=== PATIENT | male | born 1960 | race Caucasian/White ===

== ENCOUNTER 2019-01-04 09:38 | Inpatient (IN) | payer MEDICARE, MEDICAID ==
[~2019-01-04] VITALS: Ht 185.4 cm; Wt 213.6 kg
[2019-01-04] MEDS ORDERED: IV NORMAL SALINE 500ML BAG 500 ML IV ONE (10:00)
[2019-01-04] MEDS ORDERED: DIGOXIN IV 500 MCG/2 ML AMPUL. IV ONE (10:00)
--- NOTE | 2019-01-04 10:07 | EKG ---
[facility] [address] [place] [address] Test Date: 2019-01-04 Test Time: 09:48:56 Pat Name: USHA MOSS Department: Room: Gender: Pharmacist Hospital: : 1960 Requested By: TATYANA MEHTA Order Number: [id number] Reading MD: Measurements Intervals [place] Rate: 113 P: SC: QRS: 18 QRSD: 82 T: -4 QT: 322 QTc: 447 Interpretive Statements IRREGULAR RHYTHM, NO P-WAVE FOUND NO SPECIFIC ECG ABNORMALITIES RI6.01 No previous ECG available for comparison
[2019-01-04 10:18] LABS: BASO # 0.1 x10^3/uL (0.0-0.2); BASO % 1 % (0-3); EOS # 0.2 x10^3/uL (0.0-0.7); EOS % 2 % (0-3); HEMATOCRIT 49.8 % (39.0-53.0); HEMOGLOBIN 16.7 g/dL (13.0-17.5); LYMPH % 11 % (24-48); MEAN CORPUSCULAR HEMOGLOBIN 31 pg (25-35); MEAN CORPUSCULAR HGB CONC 34 g/dL (31-37); MEAN CORPUSCULAR VOLUME 94 fL (79-100); MONO # 0.9 x10^3/uL (0.0-1.1); MONO % 10 % (0-9); NEUT # 6.7 x10^3/uL (1.8-7.7); NEUT % 76 % (31-73); PLATELET COUNT 247 x10^3/uL (140-400); RED CELL DISTRIBUTION WIDTH 14.3 % (11.5-14.5); WHITE BLOOD COUNT 8.9 x10^3/uL (4.0-11.0)
--- NOTE | 2019-01-04 10:31 | RAD ---
Single view of the chest. 01/04/2019 9:57 AM Indication: Shortness of breath, dizziness. Comparison: None available Findings: There is no focal consolidation. There is no pleural effusion or pneumothorax. Borderline cardiomegaly noted. No acute osseous abnormalities are seen. Impression: 1.No evidence of acute cardiopulmonary process. 2. Borderline cardiomegaly Electronically signed by: Gabo Santiago MD (01/04/2019 10:28 AM) [id number]
[2019-01-04 10:36] LABS: CALCIUM 9.3 mg/dL (8.5-10.1); CREATININE 2.2 mg/dL (0.7-1.3); GFR 31.1; POTASSIUM 3.7 mmol/L (3.5-5.1)
[2019-01-04 10:41] LABS: ALBUMIN 3.3 g/dL (3.4-5.0); ALBUMIN/GLOBULIN RATIO 0.8 (1.0-1.7); TOTAL BILIRUBIN 0.7 mg/dL (0.2-1.0); TOTAL PROTEIN 7.4 g/dL (6.4-8.2)
--- NOTE | 2019-01-04 10:49 | PHYS DOC ---
Past Medical History Past Medical History: A-Fib, Hypertension Past Surgical History: Other Additional Past Surgical Histo: BACK Alcohol Use: None Drug Use: Marijuana Adult General Chief Complaint Chief Complaint: DIZZY/LIGHT HEADED HPI HPI 58-year-old male presents to ER via POV for complaints of dizziness and shortness of air. Patient states he was seen at Dr. Lacey's office and was told he was in A. fib so he was sent to the ER for further evaluation. Patient states he drove from [place] on Thursday and yesterday started having intermittent dizziness and increased shortness of air. Patient denies any chest pain or palpitations. Pt states he has been off of his flecainide since September. Review of Systems Review of Systems Constitutional: Denies fever or chills [] Eyes: Denies change in visual acuity, redness, or eye pain [] HENT: Denies nasal congestion or sore throat [] Respiratory: Denies cough. Reports SOA Cardiovascular: Denies chest pain or palpitations GI: Denies abdominal pain, nausea, vomiting, bloody stools or diarrhea [] : Denies dysuria or hematuria [] Musculoskeletal: Denies back/neck pain or joint pain [] Integument: Denies rash or skin lesions [] Neurologic: Denies headache, focal weakness or sensory changes. Reports intermittent dizziness Endocrine: Denies polyuria or polydipsia [] All other systems were reviewed and found to be within normal limits, except as documented in this note. Current Medications Current Medications Current Medications Medications (Trade) Dose Ordered Sig/Hong Start Time Stop Time Status Last Admin Dose Admin Digoxin (Lanoxin) 500 mcg 1X ONCE 01/04/19 10:00 01/04/19 10:01 DC 01/04/19 10:19 500 MCG Sodium Chloride 500 ml @ 500 mls/hr 1X ONCE 01/04/19 10:00 01/04/19 10:59 DC 01/04/19 10:20 500 MLS/HR Allergies Allergies Allergies Coded Allergies Type Severity Reaction Last Updated Verified No Known Drug Allergies 10/18/14 No Physical Exam Physical Exam Constitutional: Well developed, well nourished, no acute distress, non-toxic appearance. [] HENT: Normocephalic, atraumatic, oropharynx moist, nose normal. [] Eyes: Pupils equal, conjunctiva normal, no discharge. [] Neck: Normal range of motion, no tenderness, supple, no stridor. [] Cardiovascular: Irreg. heart rate regular rhythm, no murmur [] Lungs & Thorax: Bilateral breath sounds clear to auscultation- resp. equal/nonlabored Abdomen: Bowel sounds normal, soft/obese, no tenderness, no masses, no pulsatile masses. [] Skin: Warm, dry, no erythema, no rash. [] Back: No tenderness, no CVA tenderness. [] Extremities: No tenderness, no cyanosis, no clubbing, ROM intact Neurologic: Alert and oriented X 3, normal motor function, normal sensory function, no focal deficits noted. [] Psychologic: Affect normal, judgement normal, mood normal. [] Current Patient Data Vital Signs Vital Signs Date Time Temp Pulse Resp B/P (MAP) Pulse Ox O2 Delivery O2 Flow Rate FiO2 01/04/19 12:27 81 01/04/19 10:19 92/62 01/04/19 09:51 98.2 24 96 Room Air 98.2 Lab Values Laboratory Tests Test 01/04/19 10:10 White Blood Count 8.9 x10^3/uL (4.0-11.0) Red Blood Count 5.30 x10^6/uL (4.30-5.70) Hemoglobin 16.7 g/dL (13.0-17.5) Hematocrit 49.8 % (39.0-53.0) Mean Corpuscular Volume 94 fL (79-100) Mean Corpuscular Hemoglobin 31 pg (25-35) Mean Corpuscular Hemoglobin Concent 34 g/dL (31-37) Red Cell Distribution Width 14.3 % (11.5-14.5) Platelet Count 247 x10^3/uL (140-400) Neutrophils (%) (Auto) 76 % (31-73) H Lymphocytes (%) (Auto) 11 % (24-48) L Monocytes (%) (Auto) 10 % (0-9) H Eosinophils (%) (Auto) 2 % (0-3) Basophils (%) (Auto) 1 % (0-3) Neutrophils # (Auto) 6.7 x10^3/uL (1.8-7.7) Lymphocytes # (Auto) 1.0 x10^3/uL (1.0-4.8) Monocytes # (Auto) 0.9 x10^3/uL (0.0-1.1) Eosinophils # (Auto) 0.2 x10^3/uL (0.0-0.7) Basophils # (Auto) 0.1 x10^3/uL (0.0-0.2) Sodium Level 140 mmol/L (136-145) Potassium Level 3.7 mmol/L (3.5-5.1) Chloride Level 102 mmol/L (98-107) Carbon Dioxide Level 29 mmol/L (21-32) Anion Gap 9 (6-14) Blood Urea Nitrogen 35 mg/dL (8-26) H Creatinine 2.2 mg/dL (0.7-1.3) H Estimated GFR (Cockcroft-Gault) 31.1 BUN/Creatinine Ratio 16 (6-20) Glucose Level 113 mg/dL (70-99) H Calcium Level 9.3 mg/dL (8.5-10.1) Magnesium Level 2.0 mg/dL (1.8-2.4) Total Bilirubin 0.7 mg/dL (0.2-1.0) Aspartate Amino Transferase (AST) 21 U/L (15-37) Alanine Aminotransferase (ALT) 37 U/L (16-63) Alkaline Phosphatase 59 U/L (46-116) Troponin I Quantitative < 0.017 ng/mL (0.000-0.055) Total Protein 7.4 g/dL (6.4-8.2) Albumin 3.3 g/dL (3.4-5.0) L Albumin/Globulin Ratio 0.8 (1.0-1.7) L Laboratory Tests 01/04/19 10:10 Laboratory Tests 01/04/19 10:10 EKG EKG EKG obtained 01/04/19 at [address] Holt Afib Rate 113 No STEMI EKG repeat 01/04/19 at [address] Holt AFib Rate 77 No STEMI Radiology/Procedures Radiology/Procedures PROCEDURE: CHEST AP ONLY Single view of the chest. 01/04/2019 9:57 AM Indication: Shortness of breath, dizziness. Comparison: None available Findings: There is no focal consolidation. There is no pleural effusion or pneumothorax. Borderline cardiomegaly noted. No acute osseous abnormalities are seen. Impression: 1.No evidence of acute cardiopulmonary process. 2. Borderline cardiomegaly Electronically signed by: Gabo Santiago MD (01/04/2019 10:28 AM) [facility] DICTATED and SIGNED BY: GABO SANTIAGO MD DATE: 01/04/19 1028 Course & Med Decision Making Course & Med Decision Making Pertinent Labs and Imaging studies reviewed. (See chart for details) 1248: Spoke with Dr. Tejada, pt's PCP and discussed pt's case/test results and plans for admit. He reports pt's last Cr was 1.5 in September. Pt Cr was 2.2 on today's labs. With elevated renal function and patient could not have CTA of chest and so bilateral venous Dopplers were obtained no findings of DVT. Patient was in A. fib on arrival had a dose of digoxin administered and heart rate improved from 115 to 70s on repeat EKG. No ischemic changes or acute NC and troponin was negative. Patient's chest x-ray with no acute findings. Patient is being admitted to his primary care physician and will consult cardiology with adamant orders. VQ scan had been ordered for further evaluation as patient had complaints of increased shortness of air since yesterday and recent travel from [place]. Patient refused VQ scan- Dr. Tejada aware of this. Pt did receive IV fld bolus while in the ER. He reported following heart rate improving his symptoms also improved. At time of admission and discussion of his test results with him and his he was in no visible distress nontoxic appearance denying any chest pain or shortness of air. Dragon Disclaimer Dragon Disclaimer This electronic medical record was generated, in whole or in part, using a voice recognition dictation system. Departure Departure Impression: Primary Impression: Shortness of breath Additional Impressions: Acute renal injury A-fib Disposition: ADMITTED INPATIENT Admitting Physician: Claudia Tejada Condition: STABLE Referrals: SINAI FRANCO MD (PCP) Problem Qualifiers TATYANA MEHTA APRN Jan 04, 2019 10:49
--- NOTE | 2019-01-04 12:15 | RAD ---
Bilateral lower extremity venous doppler ultrasound History: Shortness of air, recent travel Comparison: None Findings: Multiple grayscale, color, and duplex spectral analysis sonographic images were acquired of the bilateral lower extremity veins to evaluate for the presence of DVT. There is normal phasicity. Normal compression, color-flow, and augmentation is demonstrated from the bilateral common femoral to the popliteal veins. Peroneal veins are poorly visualized on both sides. There are hypoechoic fluid collections in the popliteal fossa bilaterally, on the right up to 5 x 1.4 x 4.5 cm and on the left about 4 x 1.2 x 2.4 cm. Impression: 1. There is no evidence of deep venous thrombosis from the bilateral common femoral to the popliteal veins.. Calf veins are poorly visualized. 2. There are bilateral popliteal fossa fluid collections. Electronically signed by: Bernard Raphael MD (01/04/2019 12:12 PM) [id number]
[2019-01-04] MEDS ORDERED: HYDR-2145 PO (15:29)
[2019-01-04] MEDS ORDERED: METO-239 PO (15:29)
[2019-01-04] MEDS ORDERED: ALLO100T PO (15:29)
[2019-01-04] MEDS ORDERED: LISI-130 PO (15:29)
[2019-01-04] MEDS ORDERED: CHOL10003 PO (15:29)
[2019-01-04] MEDS ORDERED: OXYC1TAB7 PO (15:29)
[2019-01-04] MEDS ORDERED: LEVO125T5 PO (15:29)
[2019-01-04] MEDS ORDERED: OXYC40TA21 PO (15:29)
[2019-01-04] MEDS ORDERED: ASPI325T11 PO (15:29)
[2019-01-04 15:55] VITALS: BP 85/61
[2019-01-04] MEDS ORDERED: oxyCODONE/APAP 5/325 1 TAB TABLET PO PRN (16:00)
[2019-01-04] MEDS ORDERED: ALLOPURINOL 100 MG TABLET. PO SCH ×2 (16:00→18:00)
[2019-01-04] MEDS: LISINOPRIL 20 MG TABLET PO SCH (16:00)
[2019-01-04] MEDS ORDERED: CHOLECALCIFEROL (VITAMIN D3) 1,000 UNIT TABLET PO SCH ×2 (16:00→17:00)
[2019-01-04] MEDS ORDERED: hydroCHLOROthiazide 25 MG TABLET PO SCH ×2 (16:00→17:00)
[2019-01-04] MEDS ORDERED: METOPROLOL SUCC 24HR ER 25 MG TAB.ER.24H. PO SCH ×2 (16:00→17:00)
[2019-01-04] MEDS: ASPIRIN ENTERIC COATED 325 MG TABLET.DR. PO SCH (16:00)
[2019-01-04] MEDS ORDERED: FLECAINIDE ACETATE 50 MG TABLET. PO SCH (17:00)
--- NOTE | 2019-01-04 18:16 | PDOC2 ---
CONSULT Date of Consult Date of Consult DATE: 01/04/19 TIME: 18:10 Reason for Consult Reason for Consult: rapid atrial fibrillation Referring Physician Referring Physician: Dr. Tejada Identification/Chief Complaint Chief Complaint Lightheadedness Source Source: Chart review, Patient History of Present Illness Reason for Visit: The patient is a pleasant 58-year-old male with a history of paroxysmal atrial fibrillation. In the past the patient was seen by the EP service and treated with flecainide. The patient converted to a sinus rhythm. However he disc ontinued flecainide and has resumed atrial fibrillation. He was seen in the office today the heart rate of 1:30 and a systolic pressure of 90. He was transferred to the emergency room for workup. Patient was treated with IV digoxin which decreased his heart rate to approximately 90. His blood pressure now is 110. He is looking and feeling better. Workup is progressing. Past Medical History Cardiovascular: AFIB, HTN Pulmonary: COPD Renal/: Chronic renal insuff Past Surgical History Past Surgical History: Other (previous back surgery) Family History Family History: Cancer, Heart Disease Social History Quit ALCOHOL: rare Current Problem List Problem List Problems Medical Problems: (1) A-fib Status: Acute (2) Acute renal injury Status: Acute (3) Shortness of breath Status: Acute Current Medications Current Medications Current Medications Digoxin (Lanoxin) 500 mcg 1X ONCE IV Last administered on 01/04/19at 10:19; Start 01/04/19 at 10:00; Stop 01/04/19 at 10:01; Status DC Sodium Chloride 500 ml @ 500 mls/hr 1X ONCE IV Last administered on 01/04/19at 10:20; Start 01/04/19 at 10:00; Stop 01/04/19 at 10:59; Status DC Allopurinol (Zyloprim) 100 mg DAILY PO ; Start 01/04/19 at 16:00; Status Cancel Aspirin (Ecotrin) 325 mg DAILY PO ; Start 01/04/19 at 16:00 Vitamin D (Vitamin D3) 1,000 unit DAILY PO ; Start 01/04/19 at 16:00; Status Cancel Hydrochlorothiazide (Hydrodiuril) 25 mg DAILY PO ; Start 01/04/19 at 16:00; Status Cancel Lisinopril (Prinivil) 40 mg DAILY PO ; Start 01/04/19 at 16:00 Metoprolol Succinate (Toprol Xl) 25 mg DAILY PO ; Start 01/04/19 at 16:00; Status Cancel Oxycodone HCl (OxyCONTIN) 40 mg BID PO ; Start 01/04/19 at 21:00 Oxycodone/ Acetaminophen (Percocet 5/325) 1 tab PRN BID PRN PO BREAKTHROUGH PAIN Last administered on 01/04/19at 18:05; Start 01/04/19 at 16:00 Levothyroxine Sodium (Synthroid) 250 mcg DAILY06 PO ; Start 01/05/19 at 06:00 Flecainide Acetate (Tambocor) 100 mg Q12HR PO Last administered on 01/04/19at 18:04; Start 01/04/19 at 17:00 Vitamin D (Vitamin D3) 1,000 unit DAILYWSUP PO Last administered on 01/04/19at 18:03; Start 01/04/19 at 17:00 Allopurinol (Zyloprim) 100 mg DAILY@1800 PO Last administered on 01/04/19at 18:03; Start 01/04/19 at 18:00 Hydrochlorothiazide (Hydrodiuril) 25 mg DAILYBFRSUP PO Last administered on 01/04/19at 18:03; Start 01/04/19 at 17:00 Metoprolol Succinate (Toprol Xl) 25 mg DAILYWSUP PO Last administered on 01/04/19at 18:08; Start 01/04/19 at 17:00 Active Scripts Active Reported Lisinopril 40 Mg Tablet 1 Tab PO DAILY Metoprolol Succinate ( Xl ) (Metoprolol Succinate) 25 Mg Tab.er.24h 1 Tab PO DAILY Hydrochlorothiazide Tablet (Hydrochlorothiazide) 25 Mg Tablet 25 Mg PO DAILY Levothyroxine Sodium 125 Mcg Tablet 2 Tab PO DAILY Allopurinol 100 Mg Tablet 1 Tab PO DAILY Oxycontin (Oxycodone HCl) 40 Mg Tab.er.12h 40 Mg PO BID Oxycodone-Acetaminophen 5-325 (Oxycodone Hcl/Acetaminophen) 1 Each Tablet 1 Each PO BID PRN Vitamin D3 (Cholecalciferol (Vitamin D3)) 1,000 Unit Tablet 1 Tab PO DAILY Aspirin Ec (Aspirin) 325 Mg Tablet.dr 1 Tab PO DAILY Allergies Allergies: Coded Allergies: No Known Drug Allergies (Unverified , 10/18/14) ROS General: YES: Fatigue Respiratory: YES: Shortness of breath, SOB with excertion Cardiovascular: yes Palpitations, yes Lt Headedness Physical Exam General: mild distress HEENT: Atraumatic Lungs: Clear to auscultation Heart: Other (irregularly irregular) Abdomen: Normal bowel sounds Vitals VITALS Vital Signs Date Time Temp Pulse Resp B/P (MAP) Pulse Ox O2 Delivery O2 Flow Rate FiO2 01/04/19 18:08 86 106/70 01/04/19 18:05 18 Room Air 01/04/19 15:55 97.6 97 97.6 Labs Labs Laboratory Tests Test 01/04/19 10:10 White Blood Count 8.9 x10^3/uL (4.0-11.0) Red Blood Count 5.30 x10^6/uL (4.30-5.70) Hemoglobin 16.7 g/dL (13.0-17.5) Hematocrit 49.8 % (39.0-53.0) Mean Corpuscular Volume 94 fL (79-100) Mean Corpuscular Hemoglobin 31 pg (25-35) Mean Corpuscular Hemoglobin Concent 34 g/dL (31-37) Red Cell Distribution Width 14.3 % (11.5-14.5) Platelet Count 247 x10^3/uL (140-400) Neutrophils (%) (Auto) 76 % (31-73) Lymphocytes (%) (Auto) 11 % (24-48) Monocytes (%) (Auto) 10 % (0-9) Eosinophils (%) (Auto) 2 % (0-3) Basophils (%) (Auto) 1 % (0-3) Neutrophils # (Auto) 6.7 x10^3/uL (1.8-7.7) Lymphocytes # (Auto) 1.0 x10^3/uL (1.0-4.8) Monocytes # (Auto) 0.9 x10^3/uL (0.0-1.1) Eosinophils # (Auto) 0.2 x10^3/uL (0.0-0.7) Basophils # (Auto) 0.1 x10^3/uL (0.0-0.2) Sodium Level 140 mmol/L (136-145) Potassium Level 3.7 mmol/L (3.5-5.1) Chloride Level 102 mmol/L (98-107) Carbon Dioxide Level 29 mmol/L (21-32) Anion Gap 9 (6-14) Blood Urea Nitrogen 35 mg/dL (8-26) Creatinine 2.2 mg/dL (0.7-1.3) Estimated GFR (Cockcroft-Gault) 31.1 BUN/Creatinine Ratio 16 (6-20) Glucose Level 113 mg/dL (70-99) Calcium Level 9.3 mg/dL (8.5-10.1) Magnesium Level 2.0 mg/dL (1.8-2.4) Total Bilirubin 0.7 mg/dL (0.2-1.0) Aspartate Amino Transf (AST/SGOT) 21 U/L (15-37) Alanine Aminotransferase (ALT/SGPT) 37 U/L (16-63) Alkaline Phosphatase 59 U/L (46-116) Troponin I Quantitative < 0.017 ng/mL (0.000-0.055) Total Protein 7.4 g/dL (6.4-8.2) Albumin 3.3 g/dL (3.4-5.0) Albumin/Globulin Ratio 0.8 (1.0-1.7) Laboratory Tests Test 01/04/19 10:10 White Blood Count 8.9 x10^3/uL (4.0-11.0) Red Blood Count 5.30 x10^6/uL (4.30-5.70) Hemoglobin 16.7 g/dL (13.0-17.5) Hematocrit 49.8 % (39.0-53.0) Mean Corpuscular Volume 94 fL (79-100) Mean Corpuscular Hemoglobin 31 pg (25-35) Mean Corpuscular Hemoglobin Concent 34 g/dL (31-37) Red Cell Distribution Width 14.3 % (11.5-14.5) Platelet Count 247 x10^3/uL (140-400) Neutrophils (%) (Auto) 76 % (31-73) Lymphocytes (%) (Auto) 11 % (24-48) Monocytes (%) (Auto) 10 % (0-9) Eosinophils (%) (Auto) 2 % (0-3) Basophils (%) (Auto) 1 % (0-3) Neutrophils # (Auto) 6.7 x10^3/uL (1.8-7.7) Lymphocytes # (Auto) 1.0 x10^3/uL (1.0-4.8) Monocytes # (Auto) 0.9 x10^3/uL (0.0-1.1) Eosinophils # (Auto) 0.2 x10^3/uL (0.0-0.7) Basophils # (Auto) 0.1 x10^3/uL (0.0-0.2) Sodium Level 140 mmol/L (136-145) Potassium Level 3.7 mmol/L (3.5-5.1) Chloride Level 102 mmol/L (98-107) Carbon Dioxide Level 29 mmol/L (21-32) Anion Gap 9 (6-14) Blood Urea Nitrogen 35 mg/dL (8-26) Creatinine 2.2 mg/dL (0.7-1.3) Estimated GFR (Cockcroft-Gault) 31.1 BUN/Creatinine Ratio 16 (6-20) Glucose Level 113 mg/dL (70-99) Calcium Level 9.3 mg/dL (8.5-10.1) Magnesium Level 2.0 mg/dL (1.8-2.4) Total Bilirubin 0.7 mg/dL (0.2-1.0) Aspartate Amino Transf (AST/SGOT) 21 U/L (15-37) Alanine Aminotransferase (ALT/SGPT) 37 U/L (16-63) Alkaline Phosphatase 59 U/L (46-116) Troponin I Quantitative < 0.017 ng/mL (0.000-0.055) Total Protein 7.4 g/dL (6.4-8.2) Albumin 3.3 g/dL (3.4-5.0) Albumin/Globulin Ratio 0.8 (1.0-1.7) Assessment/Plan Assessment/Plan 1. Atrial fibrillation with rapid ventricular response rate. Patient was seen in the office with a high rate as well as decreased blood pressure. He was transported to the emergency room. He was treated with IV digoxin which treated for his rapid atrial fibrillation well. At this time will continue workup including baseline lab. We'll recheck an echo. We will start anticoagulation. 2. COPD. Continue baseline pulmonary medications. 3. Chronic kidney disease. Monitoring the patient's creatinine. He may require renal evaluation. 4. Anemia. Continue to monitor. Thank you for allowing us to participate in the care of your patient. HUGH EMMANUEL MD Jan 04, 2019 18:16
[2019-01-04 19:37] VITALS: BP 96/55
[2019-01-04] MEDS: APIXABAN 5 MG TABLET. PO SCH (20:33)
[2019-01-04] MEDS: oxyCODONE ER 40 MG TAB.ER.12H PO SCH (20:33)
[2019-01-04 22:53] VITALS: BP 97/46
[2019-01-05 02:56] VITALS: BP 106/56
[2019-01-05 04:17] LABS: BASO # 0.1 x10^3/uL (0.0-0.2); BASO % 1 % (0-3); EOS # 0.2 x10^3/uL (0.0-0.7); EOS % 4 % (0-3); HEMATOCRIT 46.6 % (39.0-53.0); HEMOGLOBIN 15.5 g/dL (13.0-17.5); LYMPH # 1.4 x10^3/uL (1.0-4.8); LYMPH % 24 % (24-48); MEAN CORPUSCULAR HEMOGLOBIN 32 pg (25-35); MEAN CORPUSCULAR HGB CONC 33 g/dL (31-37); MEAN CORPUSCULAR VOLUME 95 fL (79-100); MONO # 0.7 x10^3/uL (0.0-1.1); MONO % 12 % (0-9); NEUT # 3.6 x10^3/uL (1.8-7.7); NEUT % 60 % (31-73); PLATELET COUNT 215 x10^3/uL (140-400); RED BLOOD COUNT 4.92 x10^6/uL (4.30-5.70); RED CELL DISTRIBUTION WIDTH 14.3 % (11.5-14.5)
[2019-01-05 04:55] LABS: ALBUMIN 2.8 g/dL (3.4-5.0); ALBUMIN/GLOBULIN RATIO 0.8 (1.0-1.7); CALCIUM 8.7 mg/dL (8.5-10.1); CREATININE 1.6 mg/dL (0.7-1.3); GFR 44.9; POTASSIUM 3.7 mmol/L (3.5-5.1); TOTAL BILIRUBIN 0.7 mg/dL (0.2-1.0); TOTAL PROTEIN 6.5 g/dL (6.4-8.2)
[2019-01-05] MEDS ORDERED: LEVOTHYROXINE 125 MCG TABLET PO SCH (06:00)
--- NOTE | 2019-01-05 06:56 | EKG ---
[facility] [address] [place] [address] Test Date: 2019-01-04 Test Time: 12:16:35 Pat Name: USHA MOSS Department: Room: 8 1 Gender: M Personalization Specialist: : 1960 Requested By: Jose CAMPOS Order Number: [id number] Reading MD: Measurements Intervals [place] Rate: 77 P: CT: QRS: 8 QRSD: 82 T: -2 QT: 358 QTc: 407 Interpretive Statements IRREGULAR RHYTHM, NO P-WAVE FOUND QRS(T) CONTOUR ABNORMALITY CONSISTENT WITH ANTEROSEPTAL INFARCT AGE UNDETERMINED ABNORMAL ECG RI6.01 No previous ECG available for comparison
[2019-01-05 07:48] VITALS: BP 106/70
[2019-01-05] MEDS: ASPIRIN ENTERIC COATED 325 MG TABLET.DR. PO SCH (08:59)
[2019-01-05] MEDS: APIXABAN 5 MG TABLET. PO SCH (08:59)
[2019-01-05] MEDS: LISINOPRIL 20 MG TABLET PO SCH (09:00)
[2019-01-05] MEDS: oxyCODONE ER 40 MG TAB.ER.12H PO SCH (09:01)
--- NOTE | 2019-01-05 09:45 | PDOC2 ---
CARDIAC CONSULT DATE OF CONSULT Date of Consult DATE: 01/05/19 TIME: 09:36 REASON FOR CONSULT Reason for Consult: FIB REFERRING PHYSICIAN Referring Physician: Katelyn Peter APRN SOURCE Source: Chart review, Patient HISTORY OF PRESENT ILLNESS HISTORY OF PRESENT ILLNESS This is a 58 yo male who presented secondary to AFIB. Patient lives in [place]. Comes back for routine doctor appointments and to visit family. Had office appointment with Dr. Lacey yesterday. Was noted in AFIB and was referred to the ED for further evaluation and treatment. Does report feeling weak and slightly dizzy yesterday. Otherwise has been feeling well. No chest pain, palpitations, diaphoresis, SOA, or nausea/vomiting. Feeling better this morning. Does have a history of PAFIB and was followed by EP. Previously on flecainide, but discontinued back in September of this year. PAST MEDICAL HISTORY Cardiovascular: AFIB, HTN Pulmonary: COPD Musculoskeletal: Osteoarthritis Rheumatologic: No pertinent hx, Gout Renal/: Chronic renal insuff Endocrine: Hypothyroidism PAST SURGICAL HISTORY Past Surgical History: Other (back surgery ) FAMILY HISTORY Family History: Coronary Artery Disease (father ) SOCIAL HISTORY Smoke: Quit (2005) ALCOHOL: none Drugs: Marijuana Lives: with Family CURRENT MEDICATIONS CURRENT MEDICATIONS Current Medications Medications (Trade) Dose Ordered Sig/Hong Route PRN Reason Start Time Stop Time Status Last Admin Dose Admin Digoxin (Lanoxin) 500 mcg 1X ONCE IV 01/04/19 10:00 01/04/19 10:01 DC 01/04/19 10:19 Sodium Chloride 500 ml @ 500 mls/hr 1X ONCE IV 01/04/19 10:00 01/04/19 10:59 DC 01/04/19 10:20 Aspirin (Ecotrin) 325 mg DAILY PO 01/04/19 16:00 01/05/19 08:59 Lisinopril (Prinivil) 40 mg DAILY PO 01/04/19 16:00 01/05/19 09:00 Oxycodone HCl (OxyCONTIN) 40 mg BID PO 01/04/19 21:00 01/05/19 09:01 Oxycodone/ Acetaminophen (Percocet 5/325) 1 tab PRN BID PRN PO BREAKTHROUGH PAIN 01/04/19 16:00 01/04/19 18:05 Levothyroxine Sodium (Synthroid) 250 mcg DAILY06 PO 01/05/19 06:00 01/05/19 06:06 Flecainide Acetate (Tambocor) 100 mg Q12HR PO 01/04/19 17:00 01/04/19 18:18 DC 01/04/19 18:04 Vitamin D (Vitamin D3) 1,000 unit DAILYWSUP PO 01/04/19 17:00 01/04/19 18:03 Allopurinol (Zyloprim) 100 mg DAILY@1800 PO 01/04/19 18:00 01/04/19 18:03 Hydrochlorothiazide (Hydrodiuril) 25 mg DAILYBFRSUP PO 01/04/19 17:00 01/04/19 18:03 Metoprolol Succinate (Toprol Xl) 25 mg DAILYWSUP PO 01/04/19 17:00 01/04/19 18:08 Apixaban (Eliquis) 5 mg BID PO 01/04/19 21:00 01/05/19 08:59 ALLERGIES ALLERGIES: Coded Allergies: No Known Drug Allergies (Unverified , 10/18/14) ROS Review of System 14 point ROS conducted with pertinent positives noted above in HPI. PHYSICAL EXAM General: Alert, Oriented X3, Cooperative, No acute distress HEENT: Atraumatic, Mucous membr. moist/pink Lungs: Clear to auscultation, Normal air movement Heart: Normal S1, Normal S2, No murmurs, Other (IRRR) Abdomen: Soft, No tenderness Extremities: No edema, Normal pulses Skin: No significant lesion Neuro: Normal speech, Normal tone Psych/Mental Status: Mental status NL, Mood NL MUSCULOSKELETAL: Osteoarthritic changes both hands VITALS/I&O VITALS/I&O: Vital Signs Date Time Temp Pulse Resp B/P (MAP) Pulse Ox O2 Delivery O2 Flow Rate FiO2 01/05/19 09:01 97 Room Air 01/05/19 09:00 61 106/70 01/05/19 07:48 97.9 18 97.9 I & O 01/04/19 01/04/19 01/05/19 14:59 22:59 06:59 Intake Total 560 ml 1000 ml Output Total 1 ml 2 ml Balance 559 ml 998 ml LABS Lab: Laboratory Tests Test 01/04/19 10:10 01/05/19 03:00 White Blood Count 8.9 x10^3/uL (4.0-11.0) 6.0 x10^3/uL (4.0-11.0) Red Blood Count 5.30 x10^6/uL (4.30-5.70) 4.92 x10^6/uL (4.30-5.70) Hemoglobin 16.7 g/dL (13.0-17.5) 15.5 g/dL (13.0-17.5) Hematocrit 49.8 % (39.0-53.0) 46.6 % (39.0-53.0) Mean Corpuscular Volume 94 fL (79-100) 95 fL (79-100) Mean Corpuscular Hemoglobin 31 pg (25-35) 32 pg (25-35) Mean Corpuscular Hemoglobin Concent 34 g/dL (31-37) 33 g/dL (31-37) Red Cell Distribution Width 14.3 % (11.5-14.5) 14.3 % (11.5-14.5) Platelet Count 247 x10^3/uL (140-400) 215 x10^3/uL (140-400) Neutrophils (%) (Auto) 76 % (31-73) H 60 % (31-73) Lymphocytes (%) (Auto) 11 % (24-48) L 24 % (24-48) Monocytes (%) (Auto) 10 % (0-9) H 12 % (0-9) H Eosinophils (%) (Auto) 2 % (0-3) 4 % (0-3) H Basophils (%) (Auto) 1 % (0-3) 1 % (0-3) Neutrophils # (Auto) 6.7 x10^3/uL (1.8-7.7) 3.6 x10^3/uL (1.8-7.7) Lymphocytes # (Auto) 1.0 x10^3/uL (1.0-4.8) 1.4 x10^3/uL (1.0-4.8) Monocytes # (Auto) 0.9 x10^3/uL (0.0-1.1) 0.7 x10^3/uL (0.0-1.1) Eosinophils # (Auto) 0.2 x10^3/uL (0.0-0.7) 0.2 x10^3/uL (0.0-0.7) Basophils # (Auto) 0.1 x10^3/uL (0.0-0.2) 0.1 x10^3/uL (0.0-0.2) Sodium Level 140 mmol/L (136-145) 145 mmol/L (136-145) Potassium Level 3.7 mmol/L (3.5-5.1) 3.7 mmol/L (3.5-5.1) Chloride Level 102 mmol/L (98-107) 106 mmol/L (98-107) Carbon Dioxide Level 29 mmol/L (21-32) 31 mmol/L (21-32) Anion Gap 9 (6-14) 8 (6-14) Blood Urea Nitrogen 35 mg/dL (8-26) H 27 mg/dL (8-26) H Creatinine 2.2 mg/dL (0.7-1.3) H 1.6 mg/dL (0.7-1.3) H Estimated GFR (Cockcroft-Gault) 31.1 44.9 BUN/Creatinine Ratio 16 (6-20) 17 (6-20) Glucose Level 113 mg/dL (70-99) H 82 mg/dL (70-99) Calcium Level 9.3 mg/dL (8.5-10.1) 8.7 mg/dL (8.5-10.1) Magnesium Level 2.0 mg/dL (1.8-2.4) 2.0 mg/dL (1.8-2.4) Total Bilirubin 0.7 mg/dL (0.2-1.0) 0.7 mg/dL (0.2-1.0) Aspartate Amino Transferase (AST) 21 U/L (15-37) 18 U/L (15-37) Alanine Aminotransferase (ALT) 37 U/L (16-63) 30 U/L (16-63) Alkaline Phosphatase 59 U/L (46-116) 52 U/L (46-116) Troponin I Quantitative < 0.017 ng/mL (0.000-0.055) Total Protein 7.4 g/dL (6.4-8.2) 6.5 g/dL (6.4-8.2) Albumin 3.3 g/dL (3.4-5.0) L 2.8 g/dL (3.4-5.0) L Albumin/Globulin Ratio 0.8 (1.0-1.7) L 0.8 (1.0-1.7) L Thyroid Stimulating Hormone (TSH) 6.466 uIU/mL (0.358-3.74) H Laboratory Tests 01/04/19 10:10 01/05/19 03:00 Laboratory Tests 01/04/19 10:10 01/05/19 03:00 ASSESSMENT/PLAN ASSESSMENT/PLAN 1. PAFIB; has been off flecainide since September. QTc 407. Eliquis initiated for stroke prophylaxis. 2. Hypertension; controlled 4. MAURA on CKD; Cr better 3. Hypothyroidism; on replacement Recommendations Continue BB for rate control [id number] score 1, correlating with a 0.6% risk for stroke Will continue with Eliquis for now. Samples provided Resume flecainide following 3 weeks of oral anticoagulation. DAHIANA BASS APRN Jan 05, 2019 09:45
--- NOTE | 2019-01-05 10:55 | PDOC1 ---
History and Physical Date of Admission Date of Admission 01/05/19 Identification/Chief Complaint Chief Complaint saw Dr. Lacey and sent to ER due to Afib/RVR and low BP, found to also be in acute renal failure. Recent travel from [place], no evidence of DVT but unable to do pulmonary imaging due to renal status. Treated with IV Dig and rate controlled since. Recently taken off Flecainide after cardioversion Source Source: Caregiver, Chart review, Patient History of Present Illness History of Present Illness as above Past Medical History Cardiovascular: AFIB, HTN Pulmonary: COPD GI: No pertinent hx Heme/Onc: Anemia NOS Psych: No pertinent hx Rheumatologic: Gout Infectious disease: No pertinent hx Renal/: Chronic renal insuff Endocrine: Hypothyroidism Past Surgical History Past Surgical History: Other (previous back surgery) Family History Family History: Cancer (thyroid), Heart Disease Social History Smoke: Quit ALCOHOL: rare Drugs: None Current Problem List Problem List Problems Medical Problems: (1) A-fib Status: Acute (2) Acute renal injury Status: Acute (3) Anemia Status: Chronic (4) Atrial fibrillation with rapid ventricular response Status: Chronic (5) CKD (chronic kidney disease) Status: Chronic (6) COPD (chronic obstructive pulmonary disease) Status: Chronic (7) Shortness of breath Status: Acute Current Medications Current Medications Current Medications Medications (Trade) Dose Ordered Sig/Hong Start Time Stop Time Status Last Admin Dose Admin Allopurinol (Zyloprim) 100 mg DAILY@1800 01/04/19 18:00 01/04/19 18:03 100 MG Apixaban (Eliquis) 5 mg BID 01/04/19 21:00 01/05/19 10:15 DC 01/05/19 08:59 5 MG Aspirin (Ecotrin) 325 mg DAILY 01/04/19 16:00 01/05/19 08:59 325 MG Digoxin (Lanoxin) 500 mcg 1X ONCE 01/04/19 10:00 01/04/19 10:01 DC 01/04/19 10:19 500 MCG Flecainide Acetate (Tambocor) 100 mg Q12HR 01/04/19 17:00 01/04/19 18:18 DC 01/04/19 18:04 100 MG Hydrochlorothiazide (Hydrodiuril) 25 mg DAILYBFRSUP 01/04/19 17:00 01/04/19 18:03 25 MG Levothyroxine Sodium (Synthroid) 250 mcg DAILY06 01/05/19 06:00 01/05/19 06:06 250 MCG Lisinopril (Prinivil) 40 mg DAILY 01/04/19 16:00 01/05/19 09:00 40 MG Metoprolol Succinate (Toprol Xl) 25 mg DAILYWSUP 01/04/19 17:00 01/04/19 18:08 25 MG Oxycodone HCl (OxyCONTIN) 40 mg BID 01/04/19 21:00 01/05/19 09:01 40 MG Oxycodone/ Acetaminophen (Percocet 5/325) 1 tab PRN BID PRN 01/04/19 16:00 01/04/19 18:05 1 TAB Sodium Chloride 500 ml @ 500 mls/hr 1X ONCE 01/04/19 10:00 01/04/19 10:59 DC 01/04/19 10:20 500 MLS/HR Vitamin D (Vitamin D3) 1,000 unit DAILYWSUP 01/04/19 17:00 01/04/19 18:03 1,000 UNIT Allergies Allergies Allergies Coded Allergies Type Severity Reaction Last Updated Verified No Known Drug Allergies 10/18/14 No ROS Review of System CONSTITUTIONAL: No fever or chills EYES: No recent changes SKIN: No rash or itching CARDIOVASCULAR: No chest pain, syncope, palpitations, or edema but lighthead ed working in shop over the weekend RESPIRATORY: No SOB or cough GASTROINTESTINAL: No nausea, vomiting or abdominal pain NEUROLOGICAL: No headaches or weakness ENDOCRINE: No cold or heat intolerance GENITOURINARY: No urgency or frequency of urination MUSCULOSKELETAL: Uses crutches to assist ambulation LYMPHATICS: No enlarged lymph nodes PSYCHIATRIC: No anxiety or depression Physical Exam Physical Exam GEN.: No apparent distress. Alert and oriented. HEENT: Head is normocephalic, atraumatic NECK: Supple. LUNGS: Clear to auscultation. HEART: irregularly irregular, Afib on monitor, rate controlled, S1, S2 present. Peripheral pulses intact ABDOMEN: Obese, Soft, nontender. Positive bowel sounds. EXTREMITIES: Without any cyanosis. NEUROLOGIC: Normal speech, normal tone PSYCHIATRIC: Normal affect, normal mood. SKIN: No ulcerations Vitals Vitals Vital Signs Date Time Temp Pulse Resp B/P (MAP) Pulse Ox O2 Delivery O2 Flow Rate FiO2 01/05/19 09:01 97 Room Air 01/05/19 09:00 61 106/70 01/05/19 07:48 97.9 18 97.9 Labs Labs Laboratory Tests Test 01/04/19 10:10 01/05/19 03:00 White Blood Count 8.9 x10^3/uL (4.0-11.0) 6.0 x10^3/uL (4.0-11.0) Red Blood Count 5.30 x10^6/uL (4.30-5.70) 4.92 x10^6/uL (4.30-5.70) Hemoglobin 16.7 g/dL (13.0-17.5) 15.5 g/dL (13.0-17.5) Hematocrit 49.8 % (39.0-53.0) 46.6 % (39.0-53.0) Mean Corpuscular Volume 94 fL (79-100) 95 fL (79-100) Mean Corpuscular Hemoglobin 31 pg (25-35) 32 pg (25-35) Mean Corpuscular Hemoglobin Concent 34 g/dL (31-37) 33 g/dL (31-37) Red Cell Distribution Width 14.3 % (11.5-14.5) 14.3 % (11.5-14.5) Platelet Count 247 x10^3/uL (140-400) 215 x10^3/uL (140-400) Neutrophils (%) (Auto) 76 % (31-73) 60 % (31-73) Lymphocytes (%) (Auto) 11 % (24-48) 24 % (24-48) Monocytes (%) (Auto) 10 % (0-9) 12 % (0-9) Eosinophils (%) (Auto) 2 % (0-3) 4 % (0-3) Basophils (%) (Auto) 1 % (0-3) 1 % (0-3) Neutrophils # (Auto) 6.7 x10^3/uL (1.8-7.7) 3.6 x10^3/uL (1.8-7.7) Lymphocytes # (Auto) 1.0 x10^3/uL (1.0-4.8) 1.4 x10^3/uL (1.0-4.8) Monocytes # (Auto) 0.9 x10^3/uL (0.0-1.1) 0.7 x10^3/uL (0.0-1.1) Eosinophils # (Auto) 0.2 x10^3/uL (0.0-0.7) 0.2 x10^3/uL (0.0-0.7) Basophils # (Auto) 0.1 x10^3/uL (0.0-0.2) 0.1 x10^3/uL (0.0-0.2) Sodium Level 140 mmol/L (136-145) 145 mmol/L (136-145) Potassium Level 3.7 mmol/L (3.5-5.1) 3.7 mmol/L (3.5-5.1) Chloride Level 102 mmol/L (98-107) 106 mmol/L (98-107) Carbon Dioxide Level 29 mmol/L (21-32) 31 mmol/L (21-32) Anion Gap 9 (6-14) 8 (6-14) Blood Urea Nitrogen 35 mg/dL (8-26) 27 mg/dL (8-26) Creatinine 2.2 mg/dL (0.7-1.3) 1.6 mg/dL (0.7-1.3) Estimated GFR (Cockcroft-Gault) 31.1 44.9 BUN/Creatinine Ratio 16 (6-20) 17 (6-20) Glucose Level 113 mg/dL (70-99) 82 mg/dL (70-99) Calcium Level 9.3 mg/dL (8.5-10.1) 8.7 mg/dL (8.5-10.1) Magnesium Level 2.0 mg/dL (1.8-2.4) 2.0 mg/dL (1.8-2.4) Total Bilirubin 0.7 mg/dL (0.2-1.0) 0.7 mg/dL (0.2-1.0) Aspartate Amino Transf (AST/SGOT) 21 U/L (15-37) 18 U/L (15-37) Alanine Aminotransferase (ALT/SGPT) 37 U/L (16-63) 30 U/L (16-63) Alkaline Phosphatase 59 U/L (46-116) 52 U/L (46-116) Troponin I Quantitative < 0.017 ng/mL (0.000-0.055) Total Protein 7.4 g/dL (6.4-8.2) 6.5 g/dL (6.4-8.2) Albumin 3.3 g/dL (3.4-5.0) 2.8 g/dL (3.4-5.0) Albumin/Globulin Ratio 0.8 (1.0-1.7) 0.8 (1.0-1.7) Thyroid Stimulating Hormone (TSH) 6.466 uIU/mL (0.358-3.74) Laboratory Tests Test 01/05/19 03:00 White Blood Count 6.0 x10^3/uL (4.0-11.0) Red Blood Count 4.92 x10^6/uL (4.30-5.70) Hemoglobin 15.5 g/dL (13.0-17.5) Hematocrit 46.6 % (39.0-53.0) Mean Corpuscular Volume 95 fL (79-100) Mean Corpuscular Hemoglobin 32 pg (25-35) Mean Corpuscular Hemoglobin Concent 33 g/dL (31-37) Red Cell Distribution Width 14.3 % (11.5-14.5) Platelet Count 215 x10^3/uL (140-400) Neutrophils (%) (Auto) 60 % (31-73) Lymphocytes (%) (Auto) 24 % (24-48) Monocytes (%) (Auto) 12 % (0-9) Eosinophils (%) (Auto) 4 % (0-3) Basophils (%) (Auto) 1 % (0-3) Neutrophils # (Auto) 3.6 x10^3/uL (1.8-7.7) Lymphocytes # (Auto) 1.4 x10^3/uL (1.0-4.8) Monocytes # (Auto) 0.7 x10^3/uL (0.0-1.1) Eosinophils # (Auto) 0.2 x10^3/uL (0.0-0.7) Basophils # (Auto) 0.1 x10^3/uL (0.0-0.2) Sodium Level 145 mmol/L (136-145) Potassium Level 3.7 mmol/L (3.5-5.1) Chloride Level 106 mmol/L (98-107) Carbon Dioxide Level 31 mmol/L (21-32) Anion Gap 8 (6-14) Blood Urea Nitrogen 27 mg/dL (8-26) Creatinine 1.6 mg/dL (0.7-1.3) Estimated GFR (Cockcroft-Gault) 44.9 BUN/Creatinine Ratio 17 (6-20) Glucose Level 82 mg/dL (70-99) Calcium Level 8.7 mg/dL (8.5-10.1) Magnesium Level 2.0 mg/dL (1.8-2.4) Total Bilirubin 0.7 mg/dL (0.2-1.0) Aspartate Amino Transf (AST/SGOT) 18 U/L (15-37) Alanine Aminotransferase (ALT/SGPT) 30 U/L (16-63) Alkaline Phosphatase 52 U/L (46-116) Total Protein 6.5 g/dL (6.4-8.2) Albumin 2.8 g/dL (3.4-5.0) Albumin/Globulin Ratio 0.8 (1.0-1.7) Thyroid Stimulating Hormone (TSH) 6.466 uIU/mL (0.358-3.74) Images Images Single view of the chest. 01/04/2019 9:57 AM Indication: Shortness of breath, dizziness. Comparison: None available Findings: There is no focal consolidation. There is no pleural effusion or pneumothorax. Borderline cardiomegaly noted. No acute osseous abnormalities are seen. Impression: 1.No evidence of acute cardiopulmonary process. 2. Borderline cardiomegaly Bilateral lower extremity venous doppler ultrasound History: Shortness of air, recent travel Comparison: None Findings: Multiple grayscale, color, and duplex spectral analysis sonographic images were acquired of the bilateral lower extremity veins to evaluate for the presence of DVT. There is normal phasicity. Normal compression, color-flow, and augmentation is demonstrated from the bilateral common femoral to the popliteal veins. Peroneal veins are poorly visualized on both sides. There are hypoechoic fluid collections in the popliteal fossa bilaterally, on the right up to 5 x 1.4 x 4.5 cm and on the left about 4 x 1.2 x 2.4 cm. Impression: 1. There is no evidence of deep venous thrombosis from the bilateral common femoral to the popliteal veins.. Calf veins are poorly visualized. 2. There are bilateral popliteal fossa fluid collections. VTE Prophylaxis Ordered VTE Prophylaxis Devices: Yes VTE Pharmacological Prophylaxi: Yes (eliquis) Assessment/Plan Assessment/Plan Afib/RVR - cardiology consult, rate controlled after IV dig, was on flecainide until about a month ago Acute renal failure - improved after 1 liter IVF and back to baseline Jose CAMPOS MD Jan 05, 2019 10:55
[2019-01-05 11:30] VITALS: BP 103/68
[2019-01-05] MEDS ORDERED: PERFLUTREN PROTEIN-A MICROSPHR 0.22 MG/ML 3 ML VIAL. IV ONE ×2 (12:47→13:30)
--- NOTE | 2019-01-05 14:28 | NUR ---
SW following pt for dc planning. Chart reviewed and pt lives at home with spouse. No SW needs noted at this time. Will continue to follow pending dc needs.
[2019-01-05] MEDS ORDERED: APIX5TAB PO (14:50)
--- NOTE | 2019-01-05 15:00 | CARD ---
MR#: [id number] Date of Study: 01/05/2019 Ordering Physician: HUGH NORWOOD, Referring Physician: Annie AWAD: Cielo Hickman RDCS APPROVED REPORT EXAM: Two-dimensional and M-mode echocardiogram with Doppler, color Doppler with contrast. Other Information Quality : Technically LimitedHR: 90bpm Rhythm : Atrial FibrillationTechnically limited study due to body habitus. INDICATION Atrial Fibrillation Echo Enhancing Agent Indication: Endocardial border delineation Agent/Amount Used: Optison 1mL 2D DIMENSIONS RVDd3.7 (2.9-3.5cm)Left Atrium(2D)4.3 (1.6-4.0cm) IVSd0.9 (0.7-1.1cm)Aortic Root(2D)4.1 (2.0-3.7cm) LVDd4.7 (3.9-5.9cm)PWd1.7 (0.7-1.1cm) LVDs3.3 (2.5-4.0cm)FS (%) 29.9 % SV57.3 mlLVEF(%)57.1 (>50%) Aortic Valve AoV Peak Jules.133.6cm/sAoV VTI21.6cm AO Peak GR.4.3mmHgLVOT Peak Jules.66.9cm/s AO Mean GR.4mmHg Mitral Valve MV E Ntatjydu54.3cm/sMV DECEL [id number] MV A Xbdpayei84.8cm/sE/A Ratio1.9 Tricuspid Valve TR P. Ledsfciy206aa/sRAP [id number] TR Peak Gr.[id number] LEFT VENTRICLE Technically difficult study. The left ventricle is normal size. There is mild concentric left ventric ular hypertrophy. The left ventricular systolic function is normal and the ejection fraction is withi n normal range. The Ejection Fraction is 55-60%. There is normal LV segmental wall motion. RIGHT VENTRICLE The right ventricle is mildly dilated. ATRIA The left atrium is mildly dilated. The right atrium is mildly dilated. The interatrial septum is inta ct with no evidence for an atrial septal defect or patent foramen ovale as noted on 2-D or Doppler im aging. AORTIC VALVE The aortic valve is not well visualized. Doppler and Color Flow revealed no significant aortic regurg itation. There is no significant aortic valvular stenosis. MITRAL VALVE The mitral valve is normal in structure and function. There is no evidence of mitral valve prolapse. There is no mitral valve stenosis. Doppler and Color Flow revealed trace mitral valve regurgitation. TRICUSPID VALVE The tricuspid valve is normal in structure and function. Doppler and Color Flow revealed trace tricus pid regurgitation. The PA pressure was estimated at 20 mmHg. There is no tricuspid valve prolapse or vegetation. There is no tricuspid valve stenosis. PULMONIC VALVE The pulmonic valve is not well visualized. GREAT VESSELS The aortic root is mildly enlarged. The IVC was not visualized. PERICARDIAL EFFUSION There is no evidence of significant pericardial effusion. Critical Notification Critical Value: No <Conclusion> Technically difficult study. The left ventricle is normal size. The left ventricular systolic function is normal and the ejection fraction is within normal range. The Ejection Fraction is 55-60%. There is mild concentric left ventricular hypertrophy. There is no significant aortic valvular stenosis. Doppler and Color Flow revealed no significant aortic regurgitation. Doppler and Color Flow revealed trace mitral valve regurgitation. Doppler and Color Flow revealed trace tricuspid regurgitation. The PA pressure was estimated at 20 mmHg. The aortic root is mildly enlarged. Signed by : Hugh Norwood MD Electronically Approved : 01/05/2019 14:59:29
--- NOTE | 2019-01-05 15:41 | NUR ---
Discharge Note: USHA MOSS [address] Discharge instructions and discharge home medications reviewed with Patient and a copy given. All questions have been answered and understanding verbalized. The following instructions and handouts were given: Follow up with Dr. Tejada prior to going back to [place]. follow up with Dr. Lacey 02/10/19. Education pertaining to Eliquis was discussed and given to patient. Discontinued lines and drains:20g R AC removed with tip intact. Patient discharged to home with self care. Patient's spouse drove patient from [facility] facility.
== END 2019-01-05 15:45 | disposition home or self-care (01) | DRG 308 ==
LOC: ER 09:38 → 6 SOUTH 13:05
PROVIDERS: ADMIT Family Medicine; ATTEND Family Medicine
DX: I48.0 Paroxysmal atrial fibrillation (principal); N17.0 Acute kidney failure with tubular necrosis; E03.9 Hypothyroidism, unspecified; I12.9 Hypertensive chronic kidney disease with stage 1 through stage 4 chronic kidney disease, or unspecified chronic kidney disease; N18.9 Chronic kidney disease, unspecified; D64.9 Anemia, unspecified; M19.90 Unspecified osteoarthritis, unspecified site; M10.9 Gout, unspecified; J44.9 Chronic obstructive pulmonary disease, unspecified; Z82.49 Family history of ischemic heart disease and other diseases of the circulatory system
CPT/HCPCS: 96374; 99285; C8929; 36415; 71045; 80053; 83735; 84443; 84484; 85025; 93005; 93970; J1160; J7040; Q9956; G0378